=== PATIENT | male | born 1965 | race African-American/Black ===

== ENCOUNTER 2021-05-04 20:27 | Emergency (ER) | payer MEDICAID, OTHER ==
[~2021-05-04] VITALS: Ht 190.5 cm; Wt 72.6 kg
[2021-05-04 23:52] VITALS: BP 142/89
== END 2021-05-05 00:34 | disposition home or self-care (01) ==
LOC: ER 20:31
DX: M48.02 Spinal stenosis, cervical region (principal)
CPT/HCPCS: 72125